=== PATIENT | male | born 1990 | race Caucasian/White ===

== ENCOUNTER 2016-11-16 07:19 | Emergency (ER) | payer OTHER ==
[~2016-11-16] VITALS: Ht 163.8 cm; Wt 78.8 kg
[2016-11-16 07:28] VITALS: TEMP 36.8; Ht 163.8 cm; Wt 78.8 kg
[2016-11-16] MEDS ORDERED: HYDROmorphone INJ 1 MG/ML SYR IV STA (07:45)
[2016-11-16 08:02] VITALS: O2SAT 99
[2016-11-16] MEDS ORDERED: ACET325T96 PO (08:36)
[2016-11-16 08:37] LABS: BASO % 0.2 %; BASO ABS # 0.03 K/uL (0-0.2); COMPLETE YES; EOS % 0.7 %; HEMATOCRIT 48.9 % (42-52); IG% 0.2 %; LYMPH % 9.3 %; MEAN CELL VOLUME 91.1 fL (80-100); MEAN CORPUSCULAR HEMOGLOBIN 32.6 pg (25-34); MEAN CORPUSCULAR HGB CONC 35.8 g/dl (32-36); MEAN PLATELET VOLUME 10.2 fL (7.4-10.4); MONO % 9.9 %; NEUT % 79.7 %; PLATELET COUNT 242 K/uL (130-400); RED BLOOD COUNT 5.37 M/uL (4.7-6.1); WHITE BLOOD COUNT 16.11 K/uL (4.8-10.8)
[2016-11-16 08:56] LABS: INR 1.1 (0.9-1.1); PARTIAL THROMBOPLASTIN RATIO 1.1; PROTHROMBIN TIME (PATIENT) 11.8 SECONDS (9.0-12.0)
[2016-11-16 09:02] LABS: BUN/CREATININE RATIO 12.1 (10-20); CALCIUM 9.9 mg/dl (8.5-10.1); CREATININE 1.5 mg/dl (0.60-1.40); POTASSIUM 3.6 mmol/L (3.5-5.1)
[2016-11-16] MEDS ORDERED: OPTIRAY 320 IV PRN (09:30)
--- NOTE | 2016-11-16 09:35 | DIAGNOSTIC IMAGING REPORT ---
CHEST CTA for PULMONARY ARTERIES CT DOSE: 394.50 mGy.cm HISTORY: Atypical chest pain. Short of breath. TECHNIQUE: Multiaxial CT images of the chest were performed following the intravenous administration of contrast to evaluate the pulmonary arteries. Maximal intensity projection images were also obtained. A dose lowering technique was utilized adhering to the principles of ALARA. COMPARISON STUDY: None. FINDINGS: There is a normal caliber thoracic aorta with no evidence for dissection. There is no evidence for pulmonary embolus. No pleural effusions. No pneumothorax. The liver and spleen are unremarkable. No mediastinal or hilar lymphadenopathy. The central airways are patent. Bibasilar linear densities favor mild subsegmental atelectasis. IMPRESSION: No evidence for pulmonary embolus. Electronically signed by: Jh Rios M.D. 11/16/2016 9:34 AM Dictated Date/Time: 11/16/2016 9:25 AM
--- NOTE | 2016-11-16 09:52 | EMERGENCY ROOM VISIT NOTE ---
History First contact with patient: 07:38 Chief Complaint: RESPIRATORY PROBLEMS Stated Complaint: HARD TO BREATHE Nursing Triage Summary: Pt states, "Last night about 2.5 hrs into my shift I developed a dull chest ache and pain with inspiration. I checked my vital signs several time. I was 98% in RA, standing. I was tachycardic. The pain is right along the sternal border and I feel like I am inspiring 1/3 of my capacity. I also had pain in my neck and shoulder blades, but that has resolved. I had a throbbing in my neck at one point." Denies lightheadedness/dizziness. History of Present Illness The patient is a 26 year old male who presents to the Emergency Room with complaints of a sharp pain in his chest which started at approximately 1:30 AM while he was working. He states the pain is worse with inspiration. The patient states he had some back pain at the onset of his symptoms but that has resolved. He states now the pain is in the central to slightly left of his sternum. The patient denies any recent surgeries or recent travel. He does not smoke. The patient denies any recent leg pain. The patient denies any recent URI symptoms. The patient has never had this before. The patient admits to some heartburn but denies any nausea or vomiting. He denies any abdominal pain. Review of Systems 10 system review was performed and was negative unless stated otherwise history of present illness. Past Medical/Surgical History Anxiety and depression Social History Smoking Status: Never Smoker Alcohol Use: occasionally Marital Status: single Housing Status: lives alone Occupation Status: employed Current/Historical Medications Scheduled Acetaminophen Tab (Tylenol), 650 MG PO UD Physical Exam Vital Signs Date Time Temp Pulse Resp B/P (MAP) Pulse Ox O2 Delivery O2 Flow Rate FiO2 11/16/16 13:13 111 18 96 Room Air 11/16/16 12:25 115 18 138/96 96 11/16/16 11:40 127 16 147/107 99 Room Air 11/16/16 09:37 130 20 124/81 11/16/16 09:00 136 16 129/95 97 Room Air 11/16/16 08:05 151 11/16/16 08:05 153 25 145/103 99 Room Air 11/16/16 08:02 99 Room Air 11/16/16 07:28 36.8 136 20 142/99 98 Room Air 11/16/16 07:26 98 Room Air Physical Exam GENERAL: 18-year-old white male appears in no acute distress. MENTAL Status: Alert and oriented 3. The patient appears anxious. EYES: PERRLA. EOMs intact. EARS: Canals clear. TMs without fluid level noted. NECK: Supple, no lymphadenopathy noted. No carotid bruits noted. LUNGS: Clear auscultation without wheezes rales or rhonchi. CARDIAC: Tachycardic at a rate of 136 .normal rhythm without murmur. Pulses is full and equal throughout. CHEST WALL: Patient has tenderness palpation over the sternum and slightly to the left of the sternum. Remainder chest wall is nontender. ABDOMEN: Positive bowel sounds all 4 quadrants. Soft, nontender to palpation without organomegaly or masses. The patient does have pain in the chest when I press in the epigastric region. LOWER EXTREMITY: No cyanosis or edema noted. The calves are nontender. No palpable cords. Negative Homans bilaterally. Medical Decision & Procedures ER Provider Diagnostic Interpretation: CHEST CTA for PULMONARY ARTERIES CT DOSE: 394.50 mGy.cm HISTORY: Atypical chest pain. Short of breath. TECHNIQUE: Multiaxial CT images of the chest were performed following the intravenous administration of contrast to evaluate the pulmonary arteries. Maximal intensity projection images were also obtained. A dose lowering technique was utilized adhering to the principles of ALARA. COMPARISON STUDY: None. FINDINGS: There is a normal caliber thoracic aorta with no evidence for dissection. There is no evidence for pulmonary embolus. No pleural effusions. No pneumothorax. The liver and spleen are unremarkable. No mediastinal or hilar lymphadenopathy. The central airways are patent. Bibasilar linear densities favor mild subsegmental atelectasis. IMPRESSION: No evidence for pulmonary embolus. Electronically signed by: Jh Rios M.D. 11/16/2016 9:34 AM Laboratory Results 11/16/16 08:10 Red Blood Count 5.37, Mean Corpuscular Volume 91.1, Mean Corpuscular Hemoglobin 32.6, Mean Corpuscular Hemoglobin Concent 35.8, Mean Platelet Volume 10.2, Neutrophils (%) (Auto) 79.7, Lymphocytes (%) (Auto) 9.3, Monocytes (%) (Auto) 9.9, Eosinophils (%) (Auto) 0.7, Basophils (%) (Auto) 0.2, Neutrophils # (Auto) 12.84, Lymphocytes # (Auto) 1.50, Monocytes # (Auto) 1.60, Eosinophils # (Auto) 0.11, Basophils # (Auto) 0.03 11/16/16 08:10 Test 11/16/16 08:10 11/16/16 08:14 White Blood Count 16.11 K/uL (4.8-10.8) Red Blood Count 5.37 M/uL (4.7-6.1) Hemoglobin 17.5 g/dL (14.0-18.0) Hematocrit 48.9 % (42-52) Mean Corpuscular Volume 91.1 fL (80-100) Mean Corpuscular Hemoglobin 32.6 pg (25-34) Mean Corpuscular Hemoglobin Concent 35.8 g/dl (32-36) Platelet Count 242 K/uL (130-400) Mean Platelet Volume 10.2 fL (7.4-10.4) Neutrophils (%) (Auto) 79.7 % Lymphocytes (%) (Auto) 9.3 % Monocytes (%) (Auto) 9.9 % Eosinophils (%) (Auto) 0.7 % Basophils (%) (Auto) 0.2 % Neutrophils # (Auto) 12.84 K/uL (1.4-6.5) Lymphocytes # (Auto) 1.50 K/uL (1.2-3.4) Monocytes # (Auto) 1.60 K/uL (0.11-0.59) Eosinophils # (Auto) 0.11 K/uL (0-0.5) Basophils # (Auto) 0.03 K/uL (0-0.2) RDW Standard Deviation 41.6 fL (36.4-46.3) RDW Coefficient of Variation 12.4 % (11.5-14.5) Immature Granulocyte % (Auto) 0.2 % Immature Granulocyte # (Auto) 0.03 K/uL (0.00-0.02) Erythrocyte Sedimentation Rate 4 mm/hr (0-14) Prothrombin Time 11.8 SECONDS (9.0-12.0) Prothromb Time International Ratio 1.1 (0.9-1.1) Activated Partial Thromboplast Time 28.5 SECONDS (21.0-31.0) Partial Thromboplastin Ratio 1.1 Anion Gap 7.0 mmol/L (3-11) Est Creatinine Clear Calc Drug Dose 70.2 ml/min Estimated GFR () 72.4 Estimated GFR (Non- 62.5 BUN/Creatinine Ratio 12.1 (10-20) Calcium Level 9.9 mg/dl (8.5-10.1) Total Bilirubin 1.0 mg/dl (0.2-1) Direct Bilirubin 0.2 mg/dl (0-0.2) Aspartate Amino Transf (AST/SGOT) 24 U/L (15-37) Alanine Aminotransferase (ALT/SGPT) 40 U/L (12-78) Alkaline Phosphatase 70 U/L (45-117) Total Creatine Kinase 159 U/L (39-308) Creatine Kinase MB 0.6 ng/ml (0.5-3.6) Creatine Kinase MB Ratio 0.4 (0-3.0) Troponin I < 0.015 ng/ml (0-0.045) C-Reactive Protein < 0.29 mg/dl (0-0.29) Total Protein 8.5 gm/dl (6.4-8.2) Albumin 4.8 gm/dl (3.4-5.0) Lipase 78 U/L (73-393) Bedside D-Dimer 63 ng/mlFEU (0-450) Medications Administered Medications (Trade) Dose Ordered Sig/Moses Route Start Time Stop Time Status Last Admin Dose Admin Hydroxyzine HCl (Vistaril IM) 50 mg NOW STAT IM 11/16/16 12:10 11/16/16 12:12 DC 11/16/16 12:23 50 MG ECG Indication: tachycardia Rhythm: normal sinus Findings: no acute ischemic change ED Course The patient was evaluated. The patient's EMR and medication list were reviewed. The patient was placed on a monitor and continuous pulse ox. IV access was obtained. CBC and differential, coags, renal profile, LFTs, pointing care d-dimer was ordered. The patient was given Dilaudid 1 mg IV for pain. The patient's labs are reviewed. The patient's white count was elevated at 16,000 but otherwise labs were unremarkable. Point of care d-dimer was 63. CT of the chest for PE was ordered and interpreted by the radiologist as above without any acute findings. The patient was informed of the findings. I discussed with the patient that I did not feel that this was cardiac in nature since he has reproducible pain with deep inspiration or palpation. I informed him that the CAT scan did not reveal any infiltrate for pneumonia or any evidence of pericarditis. The patient verbalized understanding. He then stated that his mother was on her way and that I needed to talk with his mother. The mother was informed of my thought process and stated that she would feel better if a cardiac workup was performed. A cardiac workup was then ordered. EKG revealed no acute changes as above. Troponin was negative, CPK, CK-MB, sedimentation rate were all within normal range. The patient case was discussed with Dr. Manley who agree with treatment plan. She also reviewed the EKG. The patient was given Vistaral 10 mg IM. The patient was reevaluated was feeling better. The patient was discharged home in stable condition. Medical Decision Differential diagnosis include PE, pleuritic chest pain, costochondritis, gastritis, muscular strain [place] Drug Monitoring Program Search Results: patient reviewed within database Medication Reconcilliation Current Medication List: was personally reviewed by me Blood Pressure Screening Patient's blood pressure: Normal blood pressure Impression Primary Impression: Chest wall pain Departure Information Dispostion Home / Self-Care Referrals No Doctor, Assigned (PCP) Forms HOME CARE DOCUMENTATION FORM, IMPORTANT VISIT INFORMATION, WORK / SCHOOL INSTRUCTIONS Patient Instructions ED Chest Pain Costochondritis, My [facility] Additional Instructions Ibuprofen 600 mg every 6 hours with food for pain. Avoid any strenuous exercise or heavy lifting with her upper body until symptoms resolve. If you experience any chest pressure, shortness of breath return to ER immediately. Follow-up with your family doctor early next week for reevaluation.
[2016-11-16 12:05] LABS: C-REACTIVE PROTEIN < 0.29 mg/dl (0-0.29); CKMB/CK RATIO 0.4 (0-3.0)
[2016-11-16] MEDS ORDERED: hydrOXYzine HCL IM SOLN 50 MG/ML 1 ML VIAL IM STA (12:10)
[2016-11-16 13:34] VITALS: BP 129/83; PULSE 72; O2SAT 96
== END 2016-11-16 13:35 | disposition home or self-care (01) ==
LOC: C.EDB 07:21 → C.EDA 13:35
DX: R07.89 Other chest pain (principal); F41.9 Anxiety disorder, unspecified; F32.9 Major depressive disorder, single episode, unspecified